=== PATIENT | female | born 1955 | race Caucasian/White ===

== ENCOUNTER 2018-03-31 11:22 | Emergency (ER) | payer OTHER ==
[2018-03-31] MEDS: IBUPROFEN 200 MG TAB PO (12:05)
== END 2018-03-31 13:32 | disposition home or self-care (01) ==
LOC: FTE 11:22
DX: S80.11XA Contusion of right lower leg, initial encounter (principal); W20.8XXA Other cause of strike by thrown, projected or falling object, initial encounter
CPT/HCPCS: 73590; 99283-25

== ENCOUNTER 2018-06-08 13:51 | Emergency (ER) | payer OTHER ==
[2018-06-08] MEDS: DIPHENHYDRAMINE 25 MG CAP PO (16:54)
== END 2018-06-08 17:01 | disposition home or self-care (01) ==
LOC: FTE 13:51
DX: S40.861A Insect bite (nonvenomous) of right upper arm, initial encounter (principal); S00.86XA Insect bite (nonvenomous) of other part of head, initial encounter; S40.862A Insect bite (nonvenomous) of left upper arm, initial encounter; S60.561A Insect bite (nonvenomous) of right hand, initial encounter; S60.562A Insect bite (nonvenomous) of left hand, initial encounter; W57.XXXA Bitten or stung by nonvenomous insect and other nonvenomous arthropods, initial encounter; Y92.9 Unspecified place or not applicable
CPT/HCPCS: 99283; Z7610

== ENCOUNTER 2018-06-18 16:36 | Emergency (ER) | payer OTHER | END 2018-06-18 18:13 | disposition home or self-care (01) | LOC: FTE 18:13 | DX: R21 Rash and other nonspecific skin eruption (principal) | CPT/HCPCS: 99281 ==